=== PATIENT | female | born 1945 | race Caucasian/White ===

== ENCOUNTER 2018-03-19 18:29 | Inpatient (IN) | payer OTHER ==
[~2018-03-19] VITALS: Ht 170.2 cm; Wt 72.6 kg
[2018-03-19] MEDS ORDERED: DIOVAN160 M1 PO (19:00)
[2018-03-19] MEDS ORDERED: BENTYL10 MG/1 ML PO (19:01)
== END 2018-03-27 17:34 | disposition home or self-care (01) | DRG 337 ==
LOC: ER 18:29 → SURG 03-20 16:17
PROVIDERS: Colon & Rectal Surgery
PROC: 02HV33Z Insertion of Infusion Device into Superior Vena Cava, Percutaneous Approach (ICD-10-PCS; 2018-03-23)
PROC: 0DNW4ZZ Release Peritoneum, Percutaneous Endoscopic Approach (ICD-10-PCS; principal; 2018-03-25 17:00)
PROC: 3E0336Z Introduction of Nutritional Substance into Peripheral Vein, Percutaneous Approach (ICD-10-PCS; 2018-03-26)
DX: K56.51 Intestinal adhesions [bands], with partial obstruction (principal); I11.9 Hypertensive heart disease without heart failure; R73.01 Impaired fasting glucose

== ENCOUNTER 2019-08-20 09:39 | Day surgery (SDC) | payer OTHER ==
[~2019-08-20 09:39] MED LIST: BENTYL10 MG/1 ML PO; DIOVAN160 M1 PO
== END 2019-08-20 16:20 | disposition home or self-care (01) ==
LOC: AMB-ENDOS 09:39
DX: K57.30 Diverticulosis of large intestine without perforation or abscess without bleeding (principal); K64.1 Second degree hemorrhoids

== ENCOUNTER 2020-02-02 02:30 | Inpatient (IN) | payer OTHER ==
[~2020-02-02] VITALS: Ht 157.5 cm; Wt 57.6 kg
[2020-02-02] MEDS ORDERED: LOSARTAN POTASS50 MG (02:36)
[2020-02-06] MEDS ORDERED: HYOSCYAMINE0.125 M1 SL (12:08)
[2020-02-06] MEDS ORDERED: INTESTINEX680 M1 PO (12:08)
== END 2020-02-06 14:16 | disposition home or self-care (01) | DRG 390 ==
LOC: ER 02:30 → SURH 15:32
PROVIDERS: ADMIT Colon & Rectal Surgery
PROC: BW21ZZZ Computerized Tomography (CT Scan) of Abdomen and Pelvis (ICD-10-PCS; 2020-02-02)
PROC: 02HV33Z Insertion of Infusion Device into Superior Vena Cava, Percutaneous Approach (ICD-10-PCS; principal; 2020-02-03)
DX: K56.51 Intestinal adhesions [bands], with partial obstruction (principal); I11.9 Hypertensive heart disease without heart failure; K57.30 Diverticulosis of large intestine without perforation or abscess without bleeding

== ENCOUNTER 2020-02-07 23:56 | Inpatient (IN) | payer OTHER ==
[~2020-02-07] VITALS: Ht 167.6 cm; Wt 72.6 kg
[~2020-02-07 23:56] MED LIST changes: +HYOSCYAMINE0.125 M1 SL; +INTESTINEX680 M1 PO; +LOSARTAN POTASS50 MG
[2020-02-14] MEDS ORDERED: OXYC1TAB9 PO (15:23)
[2020-02-14] MEDS ORDERED: POLY119PG PO (15:25)
== END 2020-02-14 16:56 | disposition home or self-care (01) | DRG 337 ==
LOC: ER 23:56 → SURG 02-08 13:31
PROVIDERS: ADMIT Colon & Rectal Surgery
PROC: 02HV33Z Insertion of Infusion Device into Superior Vena Cava, Percutaneous Approach (ICD-10-PCS; 2020-02-09)
PROC: 0DN84ZZ Release Small Intestine, Percutaneous Endoscopic Approach (ICD-10-PCS; principal; 2020-02-11 13:00)
DX: K56.51 Intestinal adhesions [bands], with partial obstruction (principal); I11.9 Hypertensive heart disease without heart failure; R73.01 Impaired fasting glucose

== ENCOUNTER 2022-02-12 07:44 | Outpatient (CLI) | payer OTHER ==
[~2022-02-12 07:44] MED LIST changes: +OXYC1TAB9 PO; +POLY119PG PO
== END 2022-02-12 16:49 | disposition home or self-care (01) ==
LOC: RAD 07:44
PROVIDERS: ATTEND Colon & Rectal Surgery
DX: K56.50 Intestinal adhesions [bands], unspecified as to partial versus complete obstruction (principal)

== ENCOUNTER 2022-06-25 11:42 | Outpatient (CLI) | payer OTHER | END 2022-06-25 11:43 | disposition home or self-care (01) | LOC: LAB 11:42 | PROVIDERS: ATTEND Emergency Medicine | DX: Z20.828 Contact with and (suspected) exposure to other viral communicable diseases (principal) ==